=== PATIENT | female | born 1945 | race Caucasian/White ===

== ENCOUNTER 2016-12-09 12:13 | Emergency (ER) | payer OTHER ==
[~2016-12-09] VITALS: Ht 152.4 cm; Wt 70.3 kg
[2016-12-09 12:27] VITALS: BP 162/71
[2016-12-09] MEDS ORDERED: HYDROXYZINE HCL50 M1 PO (12:57)
[2016-12-09] MEDS ORDERED: DELTASONE20 MG PO (12:57)
--- NOTE | 2016-12-09 12:57 | ED SKIN/ALLERGY COMPLAINT ---
History of Present Illness General Chief Complaint: Skin Rash/ Abcess Stated Complaint: ?POSION LORY Source: patient Exam Limitations: no limitations Vital Signs & Intake/Output Vital Signs & Intake/Output Vital Signs Date Time Temp Pulse Resp B/P B/P Pulse O2 O2 Flow FiO2 Mean Ox Delivery Rate 12/09 1227 97.1 83 18 162/71 100 Room Air Allergies Coded Allergies: MDX - Codeine (CODEINE) (Severe, ANAPHYLAXIS 07/05/13) MDX - Morphine (MORPHINE) (Severe, VISION LOSS 07/05/13) Reconcile Medications Hydroxyzine HCl 50 MG TABLET 1 TAB PO TID ITCHING Prednisone (Deltasone) 20 MG TABLET 1 TAB PO TID RASH Triage Note: 71 Y/O FEMALE C/O ITCHY RED RASH TO EXPOSED SKIN SINCE SUNDAY, ? POISON LORY PER PT. MULTIPLE RED AREAS NOTED WITH SMALL OOZING AREAS Triage Nurses Notes Reviewed? yes Onset: Abrupt Duration: day(s): (few), constant, continues in ED, getting worse Timing: recent history Severity: moderate, severe Location: generalized No Modifying Factors: none HPI: 71-year-old female comes into emergency room for further evaluation of rash. Patient was outside working. She reports a generalized rash. Itching. History of poison lory. Feels same. Denies any pain. Denies any other associated symptoms. (AGNIESZKA CORDERO) Past History Travel History Traveled to [place] past 21 day No Medical History Any Pertinent Medical History? see below for history Neurological: NONE EENT: NONE Cardiovascular: hypertension Respiratory: NONE Gastrointestinal: NONE Hepatic: NONE Renal: NONE Musculoskeletal: NONE Psychiatric: NONE Endocrine: NONE Blood Disorders: NONE Cancer(s): NONE LOSS PREVENTION SPECIALIST/Reproductive: NONE Surgical History Surgical History: non-contributory Psychosocial History What is your primary language Hungarian Tobacco Use: Never used Family History Hx Contributory? No (AGNIESZKA CORDERO) Review of Systems Review of Systems Constitutional: Reports: no symptoms. EENTM: Reports: no symptoms. Respiratory: Reports: no symptoms. Cardiovascular: Reports: no symptoms. GI: Reports: no symptoms. Genitourinary: Reports: no symptoms. Musculoskeletal: Reports: no symptoms. Skin: Reports: see HPI. Neurological/Psychological: Reports: no symptoms. Hematologic/Endocrine: Reports: no symptoms. Immunologic/Allergic: Reports: no symptoms. All Other Systems: Reviewed and Negative (AGNIESZKA CORDERO) Physical Exam Physical Exam General Appearance: well developed/nourished, mild distress Head: atraumatic Eyes: Bilateral: normal appearance. Ears, Nose, Throat: normal ENT inspection, hearing grossly normal Neck: normal inspection Respiratory: no respiratory distress Cardiovascular: regular rate/rhythm Back: normal inspection Extremities: normal inspection Neurologic/Psych: awake, alert, oriented x 3, normal mood/affect Skin: intact, rash Skin Problem Location: generalized Skin Problem Character: erythema, papules, vesicular Lymphatic: no anterior cervical valeriano (AGNIESZKA CORDERO) Progress Differential Diagnosis: abscess/cellulitis, allergic reaction, anaphylaxis, angioedema, contact dermatitis, drug reaction, lyme disease, meningitis/sepsis Plan of Care: 12/09/2016 1:27:36 PM Patient clinically looks well. In no apparent distress. Nontoxic-appearing. Rash is most consistent with contact dermatitis. Patient treated with oral steroids. Hydroxyzine. Return if any concerns worsening symptoms. case discussed with dr wynn. (AGNIESZKA CORDERO) Departure Departure Disposition: HOME OR SELF CARE Condition: Stable Clinical Impression Primary Impression: Contact dermatitis Referrals: HELGA PIMENTEL,RIAN Robb (PCP/Family) Additional Instructions: Take prednisone and hydroxyzine as prescribed. Follow-up with primary care doctor. Return if any concerns worsening symptoms. Please go over all results of today's visit with your primary care doctor. Contact your primary care doctor to let them know you were here in the emergency room. There may be nonspecific findings which may not be related to your visit today here in the emergency room but may require further evaluation and chronic monitoring by your primary care doctor. If you had a laceration today the chance of foreign body always remains. You should follow-up with your primary care doctor for recheck in 3-5 days for a wound check. If you had an x-ray done there is a chance that a fracture could have been missed on initial read and you should follow-up with your primary care doctor for repeat x-rays if symptoms persist. If your blood pressure was elevated here in the emergency room please have rechecked by her primary care doctor within the next 48 hours by your primary care doctor. If you were prescribed a narcotic here in the emergency room or any type of controlled substances you're not allowed to drive while taking this medication or operate any type of heavy machinery. Narcotics can make you feel lightheaded dizziness nausea and can cause constipation. You may need to pickling tank operator a stool softener. Thank you for choosing [facility] emergency room. Please return to the emergency room immediately if you have any other concerns worsening of symptoms. Departure Forms: Customer Survey General Discharge Information Prescriptions: Current Visit Scripts Prednisone (Deltasone) 1 TAB PO TID #15 MG Hydroxyzine HCl 1 TAB PO TID #25 TAB (AGNIESZKA CORDERO) PA/INSTRUMENT LENS INSPECTOR Co-Sign Statement Statement: ED Attending supervision documentation- [X] I saw and evaluated the patient. I have also reviewed all the pertinent lab results and diagnostic results. I agree with the findings and the plan of care as documented in the PA's/INSTRUMENT LENS INSPECTOR's documentation. [X] I have reviewed the ED Record and agree with the PA's/INSTRUMENT LENS INSPECTOR's documentation. [] Additions or exceptions (if any) to the PAs/INSTRUMENT LENS INSPECTOR's note and plan are summarized below: [] (DIANE PIMENTEL,GABRIEL)
== END 2016-12-09 13:07 ==
LOC: ERH 12:13
DX: L25.9 Unspecified contact dermatitis, unspecified cause (principal)